=== PATIENT | male | born 1990 | race Two or more races ===

== ENCOUNTER 2024-06-05 15:29 | Outpatient (CLI) | payer MEDICARE, MEDICAID | END 2024-06-05 23:59 | disposition home or self-care (01) | LOC: MRI 15:29 | PROVIDERS: ATTEND Podiatrist Foot & Ankle Surgery | DX: M19.071 Primary osteoarthritis, right ankle and foot (principal); M20.11 Hallux valgus (acquired), right foot; M25.472 Effusion, left ankle; M79.671 Pain in right foot | CPT/HCPCS: 73718 ==

== ENCOUNTER 2025-04-20 19:44 | Emergency (ER) | payer MEDICARE, MEDICAID | END 2025-04-20 23:13 | disposition left against medical advice (07) | LOC: ER 19:44 | DX: L08.9 Local infection of the skin and subcutaneous tissue, unspecified (principal); Z53.21 Procedure and treatment not carried out due to patient leaving prior to being seen by health care provider ==